=== PATIENT | female | born 2000 | race American Indian/Alaskan Native ===

== ENCOUNTER 2021-05-05 01:44 | Inpatient (IN) | payer MEDICAID ==
[~2021-05-05] VITALS: Ht 160 cm; Wt 68.0 kg
[2021-05-05 02:45] LABS: BASOPHILS # (AUTO) 0.1 X10'3 (0-0.2); BASOPHILS % (AUTO) 0.5 % (0-1); EOSINOPHILS # (AUTO) 0.1 X10'3 (0-0.9); EOSINOPHILS % (AUTO) 1.1 % (0-6); HEMATOCRIT 40.2 % (35.0-45.0); HEMOGLOBIN 13.5 g/dl (12.0-16.0); LYMPHOCYTES # (AUTO) 1.2 X10'3 (1.1-4.8); LYMPHOCYTES % (AUTO) 12.8 % (21-51); MEAN CORPUSCULAR HEMOGLOBIN 29.7 PG (27.0-31.0); MEAN CORPUSCULAR HGB CONC 33.5 g/dL (33.0-36.5); MEAN CORPUSCULAR VOLUME 88.5 FL (78-98); MEAN PLATELET VOLUME 9.3 FL (7.4-10.4); MONOCYTES # (AUTO) 0.5 X10'3 (0-0.9); MONOCYTES % (AUTO) 5.8 % (2-12); NEUTROPHILS # (AUTO) 7.6 X10'3 (1.8-7.7); NEUTROPHILS % (AUTO) 79.8 % (42-75); PLATELET COUNT 237 X10'3 (140-440); RED BLOOD COUNT 4.54 X10'6 (4.20-5.60); RED CELL DISTRIBUTION WIDTH 13.3 % (11.5-14.5); WHITE BLOOD COUNT 9.5 X10'3 (4.5-11.0)
[2021-05-05 02:54] LABS: ALANINE AMINOTRANSFERASE 9 U/L (12-78); ALBUMIN 3.8 G/DL (3.4-5.0); ALBUMIN/GLOBULIN RATIO 1.1 (1.1-1.5); ALKALINE PHOSPHATASE 76 IU/L (20-180); ANION GAP 6 (8-16); ASPARTATE AMINO TRANSFERASE 8 U/L (10-37); BILIRUBIN,TOTAL 0.4 MG/DL (0.1-1.0); BLOOD UREA NITROGEN 9 MG/DL (7-18); BUN/CREATININE RATIO 10.1 (6.6-38.0); CALCIUM 8.5 MG/DL (8.5-10.1); CHLORIDE 108 MMOL/L (99-107); CREATININE 0.89 MG/DL (0.40-0.90); GLUCOSE 93 MG/DL (70-104); POTASSIUM 3.8 MMOL/L (3.5-5.1); SODIUM 139 MMOL/L (135-145); TOTAL CARBON DIOXIDE 25.5 MMOL/L (24-32); TOTAL PROTEIN 7.2 G/DL (6.4-8.2); eGFR 82 ML/MIN
[2021-05-05 03:03] LABS: ETHANOL < 0.010 GM/DL (0.0-0.010)
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
[2021-05-05] MEDS ORDERED: DULO20CA18 PO (03:49)
[2021-05-05] MEDS ORDERED: ARIP5TAB14 PO (03:49)
[2021-05-05] MEDS ORDERED: PENI-88 PO (03:49)
[2021-05-05 04:08] LABS: URINE HCG NEGATIVE (NEG)
[2021-05-05 04:13] LABS: CLARITY,URINE CLEAR (Clear); COLOR,URINE YELLOW (Yellow); GLUCOSE, URINE NEGATIVE (Neg); KETONES,URINE NEGATIVE (Neg); LEUKOCYTE ESTERASE ,URINE NEGATIVE (Neg); NITRITES, URINE NEGATIVE (Neg); OCCULT BLOOD,URINE NEGATIVE (Neg); PROTEIN,URINE NEGATIVE (Neg); UA COLLECTION TYPE URINAL; UROBILINOGEN,URINE 0.2 E.U/dL (0.2-1.0)
[2021-05-05 04:20] LABS: URINE AMPHETAMINE SCREEN NEGATIVE (Neg); URINE BARBITUATE SCREEN NEGATIVE (Neg); URINE BENZODIAZEPINES SCREEN NEGATIVE (Neg); URINE CANNABINOID SCREEN POSITIVE (Neg); URINE COCAINE SCREEN NEGATIVE (Neg); URINE METHADONE SCREEN NEGATIVE (Neg); URINE OPIATE SCREEN NEGATIVE (Neg); URINE PHENCYCLIDINE SCREEN NEGATIVE (Neg)
--- NOTE | 2021-05-05 04:59 | NUR ---
Pt is laying in bed attempting to sleep, but is still awake. Paperwork faxed to [facility] office.
--- NOTE | 2021-05-05 06:37 | NUR ---
Assumed care of patient, pt. sleeping on left side at this time, rr even and unlabored.
--- NOTE | 2021-05-05 07:40 | NUR ---
Pt. continues to sleep at this time.
[2021-05-05] MEDS: aripiprazole 5mg tablet PO SCH (08:04)
[2021-05-05] MEDS: duloxetine 20mg capsule.DR PO SCH ×2 (08:04→19:52)
--- NOTE | 2021-05-05 08:25 | NUR ---
Pt. awoke and was reluctantly compliant with taking medications r/t to the fact that she believes they are not working for her. Pt. reports ongoing S/I, however denies any current plan. She reports chronic depression and recent S/A of overdosing on medication and running in front of traffic. Pt. denies any H/I, A/V/CARRANZA, and no delusional statements made. She reports she currently lives with her boyfriend and his father and they are supportive.
--- NOTE | 2021-05-05 09:30 | NUR ---
Up to use the bathroom at this time, able to ambulate independently.
--- NOTE | 2021-05-05 10:29 | NUR ---
Pt. sitting up in bed at this time awaiting to talk to [facility], rr even and unlabored.
--- NOTE | 2021-05-05 11:34 | NUR ---
Pt. laying in bed at this time, appears to be resting comfortably.
--- NOTE | 2021-05-05 12:20 | NUR ---
Pt. talking to [facility] at this time, tearful
--- NOTE | 2021-05-05 13:00 | NUR ---
Per [facility], pt. will be placed on a MH hold at this time. Pt. is again tearful and telephoning family in order to notify them of this.
--- NOTE | 2021-05-05 13:47 | NUR ---
Pt. talking on the telephone at this time, she was able to obtain the phone number she was looking for from registration and reports contentment.
--- NOTE | 2021-05-05 13:50 | NUR ---
Updated Facesheet faxed to [facility]
--- NOTE | 2021-05-05 14:39 | NUR ---
Pt. laying in bed at this time, resting on her left side. RR even and unlabored.
--- NOTE | 2021-05-05 15:43 | NUR ---
Pt. laying in bed at this time, rr even and unlabored.
--- NOTE | 2021-05-05 16:40 | NUR ---
Pt. accepted at [facility] at 2100, she has been informed and reports understanding.
--- NOTE | 2021-05-05 17:49 | NUR ---
Pt. laying in bed at this time, no s/s of distress.
--- NOTE | 2021-05-05 18:58 | NUR ---
Client to be admitted to [facility] Room 325B for SI per JOVITA Kirkland/Kendrick Nguyen MD.
[2021-05-05 20:00] VITALS: BP 133/74
[2021-05-05] MEDS ORDERED: acetaminophen 325mg tablet PO PRN ×2 (20:25)
[2021-05-05] MEDS ORDERED: LORazepam 1 MG tablet PO PRN (20:25)
[2021-05-05] MEDS ORDERED: loperamide 2mg capsule PO PRN (20:25)
[2021-05-05] MEDS ORDERED: mag hydrox/Alum hydrox/simeth 30ml oral suspension PO PRN (20:25)
[2021-05-05] MEDS ORDERED: magnesium hydroxide 30ml (MOM) UD suspension PO PRN (20:25)
[2021-05-05] MEDS: NICOTINE POLACRILEX 2 MG LOZENGE BC PRN (21:18)
--- NOTE | 2021-05-05 22:49 | NUR ---
CUSTOMER ADVISOR SPECIALIST NOTE: LEGAL HOLD: 5150 for DTS PSYCH HX: Suicidal Ideation, Depression/anxiety, "hitting" self. Clients mother was a "schizophrenic" and substance user. Clients father is "an alcoholic". Client was raised by her paternal grandmother. MED HX: Asthma REASON FOR ADMISSION: Client got upset at her boyfriend because he wouldn't show her a picture. Client reacted and threatened to run into the road. Reports her boyfriend stopped her. She also threatened to take all her pills. Transported to the ED by D. THIS SHIFT: Client arrived on unit at 20:44 accompanied by Camille Ha and Security. Kasia Gipson, RN and this RN performed a 2 RN Skin assessment. Client then took a shower and had a snack. Client is linear and connected. She has a blunted affect and mood is depressed. Client reports prior SI (low lethality SA) and punching herself. Does not appear to have bruising. Client expresses her boyfriend "wants her home". She is pleasant and cooperative.
[2021-05-06] MEDS: traZODone 50mg tablet PO PRN ×2 (02:32→21:04)
[2021-05-06] MEDS ORDERED: albuterol 2.5 MG/3 ML nebule NEB PRN (05:40)
[2021-05-06] MEDS: aripiprazole 5mg tablet PO SCH (07:35)
[2021-05-06] MEDS: duloxetine 20mg capsule.DR PO SCH (07:35)
[2021-05-06] MEDS: nicotine 21mg patch - 24 hr TD SCH (07:35)
[2021-05-06 07:49] VITALS: BP 120/73
[2021-05-06] MEDS: NICOTINE POLACRILEX 2 MG LOZENGE BC PRN ×5 (10:10→20:21)
[2021-05-06 10:33] LABS: HEMOGLOBIN A1C 5.1 % (4.5-6.2)
[2021-05-06 10:38] LABS: CHOL/HDL RATIO 3.1 (0.00-4.99); CHOLESTEROL 110 MG/DL (0-200); HDL CHOLESTEROL 36 MG/DL (35-60); LDL CHOLESTEROL 62 MG/DL (50-100); TRIGLYCERIDES 71 MG/DL (20-135)
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
[2021-05-06 19:40] VITALS: BP 119/72
[2021-05-06] MEDS ORDERED: lurasidone 20mg tablet PO ONE (20:00)
[2021-05-06] MEDS: buPROPion SR 150mg tablet PO SCH (20:21)
--- NOTE | 2021-05-07 01:45 | NUR ---
Nursing Progress Note: Legal hold: 5150 Client on involuntary status for DTS Report received from nurse with use of SBAR: Neela RN Why are they here: Client got upset at her boyfriend because he wouldn't show her a picture. Client reacted and threatened to run into the road. Reports her boyfriend stopped her. She also threatened to take all her pills. Transported to the ED by [employer]. Assessment What has happened this shift: Received pt. up in the Recreation Room interacting appropriately with others at the beginning of the shift. She remained up throughout the shift and attended snack. This display card writer provided medication education to pt. regarding Latuda and the importance of consuming the appropriate amount of calories while taking it, she reported understanding. 1:1 completed, pt. continues to deny any S/I, H/I, A/V/CARRANZA, and no delusional statements made. However, she continues to present with a somewhat blunted affect and guarded speech, and may be minimizing. Pt. does report she had a good day, and is feeling comfortable on the unit. Pt. remained up throughout the shift watching TV in the Group Room with male peer, no inappropriate behaviors were observed. Will continue to monitor. S/I, H/I: Denies A/VH: Denies, does not appear internally preoccupied Sleep: Pt. continues to report some difficulty with sleep and requested PRN Trazodone at with effectiveness. ADL's: Independent Group attendance: N/A Were meds taken: Yes Any med S/E: None Mental Status Exam Appearance: Neat and appropriately dressed Eye contact: Good Behavior: Cooperative and pleasant Speech: Soft and minimal Mood: Pleasant Affect: Blunted with animation Thought process: Linear Thought Content: Some preoccupation with desire to discharge Cognition: A&O X4 Insight: Poor Judgment: Poor Interventions PRN's used: Nicotine Lozenges and Tramadol Therapeutic interventions: Maintained a safe and supportive environment, ensured contract for safety, provided clear and simple instructions, provided active listening and positive encouragement, provided medication education, and maintained Q 15 min safety checks. Restraints/seclusion/emergency medication: N/A Justification of Continued Inpatient Treatment: Per JOVITA Keene, pt. requires medication adjustments and a safe and supportive environment.
[2021-05-07 07:54] VITALS: BP 118/53
[2021-05-07] MEDS: duloxetine 20mg capsule.DR PO SCH (07:55)
[2021-05-07] MEDS: buPROPion SR 150mg tablet PO SCH ×2 (07:55→19:11)
[2021-05-07] MEDS: nicotine 21mg patch - 24 hr TD SCH (07:55)
[2021-05-07] MEDS: NICOTINE POLACRILEX 2 MG LOZENGE BC PRN ×5 (08:42→20:17)
--- NOTE | 2021-05-07 16:31 | NUR ---
Nursing Progress Note: Legal hold: 5150 Client on involuntary status for DTS Report received from nurse with use of SBAR: JONEL Galvez Why are they here: Client got upset at her boyfriend because he wouldn't show her a picture. Client reacted and threatened to run into the road. Reports her boyfriend stopped her. She also threatened to take all her pills. Transported to the ED by [employer]. Assessment What has happened this shift: RN received pt. asleep at start of shift. Pt. awake for breakfast and took all medications. 1:1 done at bedside, pt. reports she is doing a lot better and states she attempted to walk in front of traffic after being Tired of it all. Pt. reports SA a week ago by taking a bottle of Cymbalta but that her boyfriend prevented her from swallowing the pills, pt. states she again felt tired of it all. When asked further what she means by this pt. states, that she had been getting into fights with her boyfriend and realizing she was fighting just like she watched her parents fight when she was a child. Pt. is hopeful for discharge soon and is looking forward to being with her boyfriend again. S/I, H/I: Denies A/VH: Denies Sleep: 7 hrs per NOC shift report and pt. napped approx. an hr on day shift. ADL's: Independent Group attendance: N/A Were meds taken: Yes Any med S/E: Denies Mental Status Exam Appearance: Neat and clean wearing green unit scrub pants and purple T-Shirt. Eye contact: Good Behavior: Cooperative, socializing with peers in milieu, appropriate. Speech: WNL Mood: Euthymic Affect: Congruent with mood. Thought process: Linear Thought Content: Hopeful for discharge. Cognition: A&O X4 Insight: Poor Judgment: Poor Interventions PRN's used: None. Therapeutic interventions: Maintained a safe and supportive environment, ensured contract for safety, provided clear and simple instructions, provided active listening and positive encouragement, provided medication education, and maintained Q 15 min safety checks. Restraints/seclusion/emergency medication: N/A Justification of Continued Inpatient Treatment: Per JOVITA Keene, pt. requires medication adjustments and a safe and supportive environment.
[2021-05-07] MEDS ORDERED: lurasidone 20mg tablet PO SCH (18:00)
[2021-05-07 19:31] VITALS: BP 121/68
[2021-05-07] MEDS: traZODone 50mg tablet PO PRN (20:17)
--- NOTE | 2021-05-08 02:43 | NUR ---
Nursing Progress Note: Legal hold: 5150 Client on involuntary status for DTS Report received from nurse with use of SBAR: Neela RN Why are they here: Client got upset at her boyfriend because he wouldn't show her a picture. Client reacted and threatened to run into the road. Reports her boyfriend stopped her. She also threatened to take all her pills. Transported to the ED by [employer]. Assessment What has happened this shift: Pt was in rec room watching tv at shift change. Pt appeared happy and greeted this rn in a friendly manner. Pt spent time talking on the phone, which seemed appropriate. Pt is excited to be going home tomorrow, which she believes is happening. Pt is now denying being suicidal or having hallucinations. All hs meds were taken without issue. S/I, H/I: Denies A/VH: Denies, does not appear internally preoccupied Sleep: see sleep assessment ADL's: Independent Group attendance: N/A Were meds taken: Yes Any med S/E: None Mental Status Exam Appearance: Neat and appropriately dressed Eye contact: Good Behavior: Cooperative and pleasant Speech: Soft and minimal Mood: Pleasant Affect: Blunted with animation Thought process: Linear Thought Content: Some preoccupation with desire to discharge Cognition: A&O X4 Insight: Poor Judgment: Poor Interventions PRN's used: Nicotine Lozenges and Trazadone Therapeutic interventions: Maintained a safe and supportive environment, ensured contract for safety, provided clear and simple instructions, provided active listening and positive encouragement, provided medication education, and maintained Q 15 min safety checks. Restraints/seclusion/emergency medication: N/A Justification of Continued Inpatient Treatment: Per JOVITA Keene, pt. requires medication adjustments and a safe and supportive environment.
[2021-05-08] MEDS: buPROPion SR 150mg tablet PO SCH (07:22)
[2021-05-08] MEDS: duloxetine 20mg capsule.DR PO SCH (07:22)
[2021-05-08] MEDS: NICOTINE POLACRILEX 2 MG LOZENGE BC PRN ×4 (07:23→13:38)
[2021-05-08] MEDS: nicotine 21mg patch - 24 hr TD SCH (07:23)
[2021-05-08 07:51] VITALS: BP 131/72
--- NOTE | 2021-05-08 09:13 | NUR ---
DISCHARGE PLAN Scheduled Summer's follow up for tomorrow at the [facility]. She reported she feels safe to return home with her boyfriend. She reported he can pick her up today. KEN Narayan
[2021-05-08] MEDS ORDERED: DULO20CA18 PO ×2 (12:55)
[2021-05-08] MEDS ORDERED: BUPR-72 PO ×2 (12:55)
[2021-05-08] MEDS ORDERED: NICO-668 BC ×2 (12:55)
[2021-05-08] MEDS ORDERED: LURA20TA PO ×2 (12:55)
[2021-05-08] MEDS ORDERED: NICO-687 TD ×2 (12:55)
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
--- NOTE | 2021-05-08 14:40 | NUR ---
DISCHARGE NOTE: Pt. discharged to home, picked up by her boyfriend in auto. RN went through discharge paperwork with pt. and pt. verbalized understanding of medication regimen and f/u plan and signed all paper work. Pt. also verbalized understanding to call crisis numbers and/or 911 if feeling unsafe. Pt. showed improvement during hospitalization and denies SI/HI, A/V hallucinations. Pt. is A&Ox4 and in no apparent distress. Pt. discharged with all belongings and valuables.
== END 2021-05-08 14:40 | disposition home or self-care (01) | DRG 751 ==
LOC: ER 01:45 → ADULT MH 18:30
PROVIDERS: ADMIT Psychiatry & Neurology Psychiatry; ATTEND Psychiatry & Neurology Psychiatry
DX: F33.2 Major depressive disorder, recurrent severe without psychotic features (principal); R45.851 Suicidal ideations; F12.90 Cannabis use, unspecified, uncomplicated; F19.90 Other psychoactive substance use, unspecified, uncomplicated; Z20.822 Contact with and (suspected) exposure to COVID-19; F17.210 Nicotine dependence, cigarettes, uncomplicated; F43.12 Post-traumatic stress disorder, chronic; S70.12XA Contusion of left thigh, initial encounter; S70.11XA Contusion of right thigh, initial encounter; Z81.3 Family history of other psychoactive substance abuse and dependence; Z81.8 Family history of other mental and behavioral disorders; Z91.411 Personal history of adult psychological abuse; Z79.899 Other long term (current) drug therapy; X83.8XXA Intentional self-harm by other specified means, initial encounter; Y93.89 Activity, other specified; Y92.89 Other specified places as the place of occurrence of the external cause; Y99.8 Other external cause status; Z81.1 Family history of alcohol abuse and dependence; Z71.51 Drug abuse counseling and surveillance of drug abuser; Z71.6 Tobacco abuse counseling
CPT/HCPCS: 36415; 80053; 80061; 80305; 80320; 81003; 81025; 83036; 84443; 85025; 87081; 87635; 99285; C9803

== ENCOUNTER 2021-05-16 16:38 | Emergency (ER) | payer MEDICAID ==
[~2021-05-16] VITALS: Ht 160 cm; Wt 71.0 kg
[~2021-05-16 16:38] MED LIST: BUPR-72 PO; DULO20CA18 PO; LURA20TA PO; NICO-668 BC; NICO-687 TD
[2021-05-16 17:22] LABS: BASOPHILS # (AUTO) 0.1 X10'3 (0-0.2); BASOPHILS % (AUTO) 0.6 % (0-1); EOSINOPHILS # (AUTO) 0.1 X10'3 (0-0.9); EOSINOPHILS % (AUTO) 0.9 % (0-6); HEMATOCRIT 37.4 % (35.0-45.0); HEMOGLOBIN 12.7 g/dl (12.0-16.0); LYMPHOCYTES # (AUTO) 0.9 X10'3 (1.1-4.8); LYMPHOCYTES % (AUTO) 7.8 % (21-51); MEAN CORPUSCULAR HEMOGLOBIN 29.8 PG (27.0-31.0); MEAN CORPUSCULAR VOLUME 87.7 FL (78-98); MEAN PLATELET VOLUME 8.6 FL (7.4-10.4); MONOCYTES # (AUTO) 0.8 X10'3 (0-0.9); MONOCYTES % (AUTO) 6.5 % (2-12); NEUTROPHILS % (AUTO) 84.2 % (42-75); PLATELET COUNT 285 X10'3 (140-440); RED BLOOD COUNT 4.27 X10'6 (4.20-5.60); RED CELL DISTRIBUTION WIDTH 12.9 % (11.5-14.5); WHITE BLOOD COUNT 11.8 X10'3 (4.5-11.0)
[2021-05-16 17:34] LABS: ALANINE AMINOTRANSFERASE 10 U/L (12-78); ALBUMIN 3.4 G/DL (3.4-5.0); ALBUMIN/GLOBULIN RATIO 0.8 (1.1-1.5); ALKALINE PHOSPHATASE 89 IU/L (20-180); ANION GAP 12 (8-16); ASPARTATE AMINO TRANSFERASE 13 U/L (10-37); BILIRUBIN,TOTAL 0.6 MG/DL (0.1-1.0); BLOOD UREA NITROGEN 10 MG/DL (7-18); BUN/CREATININE RATIO 10.1 (6.6-38.0); CHLORIDE 105 MMOL/L (99-107); CREATININE 0.99 MG/DL (0.40-0.90); GLUCOSE 94 MG/DL (70-104); POTASSIUM 4.1 MMOL/L (3.5-5.1); SODIUM 142 MMOL/L (135-145); TOTAL PROTEIN 7.6 G/DL (6.4-8.2); eGFR 72 ML/MIN
[2021-05-16 17:44] LABS: ETHANOL < 0.010 GM/DL (0.0-0.010)
[2021-05-16 17:59] LABS: URINE HCG NEGATIVE (NEG)
[2021-05-16 18:11] LABS: URINE AMPHETAMINE SCREEN NEGATIVE (Neg); URINE BARBITUATE SCREEN NEGATIVE (Neg); URINE BENZODIAZEPINES SCREEN NEGATIVE (Neg); URINE CANNABINOID SCREEN POSITIVE (Neg); URINE COCAINE SCREEN NEGATIVE (Neg); URINE METHADONE SCREEN NEGATIVE (Neg); URINE OPIATE SCREEN NEGATIVE (Neg); URINE PHENCYCLIDINE SCREEN NEGATIVE (Neg)
[2021-05-16] MEDS ORDERED: haloperidol lactate 5mg/ml inj ONE (18:17)
[2021-05-16] MEDS ORDERED: LORazepam 2 mg/ml vial ONE (18:17)
[2021-05-16] MEDS ORDERED: diphenhydrAMINE 50 mg/ml inj ONE (18:18)
[2021-05-16 18:20] LABS: CLARITY,URINE CLOUDY (Clear); COLOR,URINE YELLOW (Yellow); UA COLLECTION TYPE CLN CATCH MIDSTREAM
[2021-05-16 18:21] LABS: GLUCOSE, URINE NEGATIVE (Neg); KETONES,URINE 40 mg/dl (Neg); LEUKOCYTE ESTERASE ,URINE NEGATIVE (Neg); NITRITES, URINE NEGATIVE (Neg); OCCULT BLOOD,URINE NEGATIVE (Neg); PROTEIN,URINE 30 mg/dl (Neg); UROBILINOGEN,URINE 0.2 E.U/dL (0.2-1.0)
[2021-05-16 18:24] LABS: AMORPHOUS URATES 4+; MUCUS STRANDS MODERATE /LPF (Neg); RBC,URINE NONE SEEN /HPF (0-2); SQUAMOUS EPITHELIAL CELL,UR FEW /LPF (FEW); WBC,URINE 0-4 /HPF (0-4)
[2021-05-16 18:25] LABS: BACTERIA,URINE 2+ /HPF (Neg); HYALINE CASTS 0-3 /LPF (NEGATIVE)
--- NOTE | 2021-05-16 18:27 | NUR ---
The patient was on the phone talking with her boyfriend. She was agitated and demanding to leave. She was crying and stating "I'm done! I hate you all! I hope you !' She then began punching herself in the head. She refused to engage with staff. She was very overwhelmed with talking with her boyfriend and stated that he hung up on her. Ines HUSSEIN made aware and IM medications given. Security was standing by.
[2021-05-16] MEDS ORDERED: ARIP10TA9 PO (18:41)
[2021-05-16] MEDS ORDERED: NICO-687 TOP (18:55)
[2021-05-16] MEDS ORDERED: DULO20CA50 PO (18:55)
[2021-05-16] MEDS ORDERED: LURA20TA PO (18:55)
[2021-05-16] MEDS ORDERED: NICO-668 MM (18:55)
[2021-05-16] MEDS ORDERED: BUPR150T8 PO (18:55)
--- NOTE | 2021-05-16 18:59 | NUR ---
Reviewed medication list with the patient. The patient is much calmer.
[2021-05-16] MEDS: buPROPion SR 150mg tablet PO SCH (20:00)
--- NOTE | 2021-05-16 21:05 | NUR ---
The patient appears to be sleeping
--- NOTE | 2021-05-16 21:12 | NUR ---
Packet sent to [facility]
--- NOTE | 2021-05-16 22:11 | NUR ---
The patient appears to be sleeing
--- NOTE | 2021-05-16 23:16 | NUR ---
The patient appears to be sleeping
--- NOTE | 2021-05-17 01:34 | NUR ---
The patient appears to be sleeping
--- NOTE | 2021-05-17 02:16 | NUR ---
PT RESTING APPEARS TO BE ASLEEP ON RIGHT SIDE SLIGHTLY. EVEN AND UNLABORED RESPIRATIONS.
--- NOTE | 2021-05-17 03:43 | NUR ---
The patient appears to be sleeping
--- NOTE | 2021-05-17 05:04 | NUR ---
The patient appears to be sleeping
--- NOTE | 2021-05-17 07:00 | NUR ---
Pt appears to be sleeping on right side, respirations even and unlabored.
[2021-05-17] MEDS ORDERED: nicotine 21mg patch - 24 hr TD SCH (08:00)
[2021-05-17] MEDS ORDERED: duloxetine 20mg capsule.DR PO SCH (08:00)
[2021-05-17] MEDS: buPROPion SR 150mg tablet PO SCH (08:41)
[2021-05-17] MEDS: NICOTINE POLACRILEX 2 MG LOZENGE BC PRN ×2 (08:41→10:53)
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
--- NOTE | 2021-05-17 10:56 | NUR ---
Pt sitting up in bed. Pt tearful unable to contact her boyfriend "I just want to talk to him." Pt was accepted to [facility]. Pt states "I just want to go home." Pt states "I am going to freak out." Title Curator was able to talk with patient and calm her down. Pt requested a Nicotine lozenge.
[2021-05-17] MEDS ORDERED: diphenhydrAMINE 25mg capsule PO ONE (11:30)
[2021-05-17] MEDS ORDERED: OLANZapine 5mg rapidly disint. tablet PO ONE (11:30)
--- NOTE | 2021-05-17 11:36 | NUR ---
Pt continued to cry and redial boyfriends number "He is just ignoring me!" Pt is slowly escalating. Pt stated "I need something to calm me down." Received order for PO Zyprexa 5mg and Benadryl 25mg. Will continue to monitor.
--- NOTE | 2021-05-17 12:12 | NUR ---
Pt sleeping comfortably, no distress noted.
--- NOTE | 2021-05-17 14:07 | NUR ---
Pt finished lunch is back to sleeping. Pt's awaiting transfer to [facility].
[2021-05-17 14:37] VITALS: BP 128/67
--- NOTE | 2021-05-17 15:08 | NUR ---
DISCHARGE NOTE: Pt was transferred to [facility] at 1425. Pt was A&Ox4. Pt was calm and cooperative. Pt left with all personal belongings. [facility] arranged transportation. Pt escorted to lobby with security. No issues to report.
[2021-05-17] MEDS ORDERED: lurasidone 20mg tablet PO SCH (18:00)
== END 2021-05-17 15:09 ==
LOC: ER 16:38
DX: F33.9 Major depressive disorder, recurrent, unspecified (principal); R45.851 Suicidal ideations; Z20.822 Contact with and (suspected) exposure to COVID-19
CPT/HCPCS: 36415; 80053; 80305; 80320; 81001; 81025; 84443; 85025; 87635; 99285; C9803; J1200; J1630; J2060; Q0163